=== PATIENT | male | born 1950 ===

== ENCOUNTER 2018-04-01 08:50 | Day surgery (SDC) | payer OTHER ==
[~2018-04-01] VITALS: Ht 170.2 cm; Wt 113.4 kg
[~2018-04-01 08:50] MED LIST: ANDROGEL PO; FURO100EL; FURO20 PO; HYDCHL12.5; LISI20 PO; METF500 PO; METF500C; OLME40 PO; OLME5TAB; POTBIC25; POTCHL10ER PO
== END 2018-04-01 22:40 | disposition home or self-care (01) ==
LOC: ORSCMMR 08:50 → ORD 10:00 → ORSCMMR 10:00
PROVIDERS: Internal Medicine Gastroenterology
PROC: 0DBN8ZX Excision of Sigmoid Colon, Via Natural or Artificial Opening Endoscopic, Diagnostic (ICD-10-PCS; principal; 2018-04-01 10:00)
PROC: 0DBC8ZX Excision of Ileocecal Valve, Via Natural or Artificial Opening Endoscopic, Diagnostic (ICD-10-PCS; principal; 2018-04-01 10:00)
PROC: 0DBK8ZX Excision of Ascending Colon, Via Natural or Artificial Opening Endoscopic, Diagnostic (ICD-10-PCS; principal; 2018-04-01 10:00)
PROC: 0DBL8ZX Excision of Transverse Colon, Via Natural or Artificial Opening Endoscopic, Diagnostic (ICD-10-PCS; principal; 2018-04-01 10:00)
DX: R19.7 Diarrhea, unspecified (principal); D12.2 Benign neoplasm of ascending colon; K63.89 Other specified diseases of intestine; I10 Essential (primary) hypertension; Z98.84 Bariatric surgery status; E11.9 Type 2 diabetes mellitus without complications; G47.30 Sleep apnea, unspecified; Z79.84 Long term (current) use of oral hypoglycemic drugs; Z79.899 Other long term (current) drug therapy
CPT/HCPCS: 82947; 88305; J7120

== ENCOUNTER → 2018-06-11 | Outpatient (CLI) | payer OTHER | END | disposition home or self-care (01) | LOC: PLD 11:33 → LAB SHORT 11:33 | DX: B35.1 Tinea unguium (principal) | CPT/HCPCS: 88305; 88312 ==

== ENCOUNTER → 2018-09-17 | Outpatient (CLI) | payer OTHER | END | disposition home or self-care (01) | LOC: LAB 10:45 → LAB SHORT 10:45 → LAB FUT 09-16 15:35 | DX: E11.9 Type 2 diabetes mellitus without complications (principal) | CPT/HCPCS: 82043 ==

== ENCOUNTER 2019-03-29 16:31 | Inpatient (IN) | payer OTHER ==
[~2019-03-29] VITALS: Ht 172.7 cm; Wt 110.3 kg
[~2019-03-29 16:31] MED LIST changes: -HYDCHL12.5; +Hydrochloroth12.5 MG PO; -METF500C; +METFORMIN HCL1000 M1 PO; +Zestril40 MG PO
[2019-03-29 17:03] LABS: BASOPHILS ABSOLUTE AUTO 0.03 K/mm3 (0.00-0.23); BASOPHILS PERCENT AUTO 0 % (0-2); EOSINOPHILS ABSOLUTE AUTO 0.09 K/mm3 (0.00-0.68); EOSINOPHILS PERCENT AUTO 1 % (0-6); Hematocrit 38.7 % (37.0-53.0); Hemoglobin 12.7 g/dL (13.5-17.5); IMMATURE GRAN ABSOLUTE AUTO 0.04 K/mm3 (0.00-0.10); IMMATURE GRAN PERCENT AUTO 0 % (0-1); LYMPHOCYTES ABSOLUTE AUTO 1.26 K/mm3 (0.84-5.20); LYMPHOCYTES PERCENT AUTO 10 % (21-46); MONOCYTES ABSOLUTE AUTO 0.75 K/mm3 (0.16-1.47); MONOCYTES PERCENT AUTO 6 % (4-13); Mean Corpuscular HGB 31.3 pg (26.0-34.0); Mean Corpuscular HGB Conc 32.8 g/dL (31.5-36.5); Mean Corpuscular Volume 95 fL (80-100); Mean Platelet Volume 10.7 fL (9.1-12.4); NEUTROPHILS ABSOLUTE AUTO 9.98 K/mm3 (1.96-9.15); NEUTROPHILS PERCENT AUTO 82 % (41-73); Platelet Count 241 K/mm3 (150-400); RDW Coefficient Variation 12.5 % (11.7-14.2); RDW Standard Deviation 44.1 fL (35.1-46.3); Red Blood Cell Count 4.06 M/mm3 (4.30-5.90); White Blood Cell Count 12.15 K/mm3 (4.00-11.30)
[2019-03-29 17:28] LABS: Alanine Aminotransfer (ALT/SGP 24 U/L (12-78); Albumin, Blood 3.3 g/dL (3.4-5.0); Albumin/Globulin Ratio 0.8 (0.8-1.8); Alk Phos 114 U/L (50-136); Anion Gap 6 mmol/L (6-16); Aspartate Aminotrans (AST/SGOT 20 U/L (12-37); Bilirubin, Total 0.2 mg/dL (0.1-1.0); Blood Urea Nitrogen 21 mg/dL (8-24); Bun/Creatinine Ratio 18.6 (12.0-20.0); CO2, Blood 23 mmol/L (21-32); Calcium, Blood 8.2 mg/dL (8.5-10.1); Chloride, Blood 107 mmol/L (98-108); Creatinine, Blood 1.13 mg/dL (0.60-1.20); Glomerular Filtration Rate >60 (60-); Glucose, Blood 175 mg/dL (70-99); Potassium, Blood 3.9 mmol/L (3.5-5.5); Sodium, Blood 136 mmol/L (136-145); Total Protein, Blood 7.3 g/dL (6.4-8.2); Troponin I 0.107 ng/mL (0.000-0.040)
[2019-03-29] MEDS ORDERED: THERA1 EACH PO (19:12)
[2019-03-29 21:09] LABS: International Normalized Ratio 0.98; Prothrombin Time Results 10.4 Sec (9.7-11.5)
[2019-03-30 00:53] LABS: BASOPHILS ABSOLUTE AUTO 0.02 K/mm3 (0.00-0.23); BASOPHILS PERCENT AUTO 0 % (0-2); EOSINOPHILS ABSOLUTE AUTO 0.14 K/mm3 (0.00-0.68); EOSINOPHILS PERCENT AUTO 1 % (0-6); Hematocrit 37.1 % (37.0-53.0); IMMATURE GRAN ABSOLUTE AUTO 0.03 K/mm3 (0.00-0.10); IMMATURE GRAN PERCENT AUTO 0 % (0-1); LYMPHOCYTES ABSOLUTE AUTO 1.98 K/mm3 (0.84-5.20); LYMPHOCYTES PERCENT AUTO 19 % (21-46); MONOCYTES ABSOLUTE AUTO 0.69 K/mm3 (0.16-1.47); MONOCYTES PERCENT AUTO 7 % (4-13); Mean Corpuscular HGB 31.3 pg (26.0-34.0); Mean Corpuscular HGB Conc 32.3 g/dL (31.5-36.5); Mean Corpuscular Volume 97 fL (80-100); Mean Platelet Volume 10.9 fL (9.1-12.4); NEUTROPHILS ABSOLUTE AUTO 7.34 K/mm3 (1.96-9.15); NEUTROPHILS PERCENT AUTO 72 % (41-73); Platelet Count 226 K/mm3 (150-400); RDW Coefficient Variation 12.6 % (11.7-14.2); RDW Standard Deviation 44.7 fL (35.1-46.3); Red Blood Cell Count 3.84 M/mm3 (4.30-5.90)
[2019-03-30 01:10] LABS: Anion Gap 9 mmol/L (6-16); Blood Urea Nitrogen 23 mg/dL (8-24); Bun/Creatinine Ratio 20.4 (12.0-20.0); CO2, Blood 23 mmol/L (21-32); Calcium, Blood 7.9 mg/dL (8.5-10.1); Chloride, Blood 107 mmol/L (98-108); Creatinine, Blood 1.13 mg/dL (0.60-1.20); Glomerular Filtration Rate >60 (60-); Glucose, Blood 237 mg/dL (70-99); Potassium, Blood 3.7 mmol/L (3.5-5.5); Sodium, Blood 139 mmol/L (136-145)
[2019-03-30 01:22] LABS: Cholesterol 115 mg/dL (50-200); HDL Cholesterol 29 mg/dL (>39); Low Density Lipoprotein Chol 59 mg/dL (0-110); Triglycerides 137 mg/dL (30-160); Very Low Density Lipoprot Chol 27 mg/dL (6-32)
--- NOTE | 2019-03-30 05:32 | NUR ---
SHIFT SUMMARY PT SLEEPING COMFORTABLY IN ROOM AT THIS TIME. NO ACUTE CHANGES IN STATSU SINCE ARRIVAL. PT CP WAS MANAGED IN ED PRIOR TO ARRIVAL. PT DENIES ANY CP AT T/O NIGHT. RESP EVEN UNLABORED ON RA W. SATS >92%. PT HAS HEPARIN GTT INFUSING IN PIV. CARDIO CONSULT CALLED IN TO [facility]. PT RESTING WELL AT THIS TIME. NPO FOR POSSIBLE CATH THIS AM. CALL LIGHT IN REACH.
--- NOTE | 2019-03-30 07:27 | NUR ---
ASSUMED CARE: PT RESTING IN BED, AWAKE, ALERT AND ORIENTED. HEPARIN GTT RUNNING, DENIES CHEST PAIN OR NEEDS AT THIS TIME
--- NOTE | 2019-03-30 10:05 | NUR ---
PT'S DAUGHTER CAME OUT OF ROOM AND STATED PT FELT LIKE HE WAS HAVING "HEART BURN." PYROMETER TEMPERATURE REGULATOR SAYS NO RECENT CHANGES. DSICUSSED WITH AUDIOMETRIC TECHNICIAN. ADMINISTERED DOSE OF NITRO, AWAITING EFFECTS
--- NOTE | 2019-03-30 10:28 | NUR ---
PT STATED THAT NITRO MADE HEART BURN SENSATION WORSE. CALL TO DR PIRES, ORDER FOR PEPCID. WILL ADMINISTER. FAMILY AT BEDSIDE. NO FURTHER NEEDS OR CONCERNS AT THIS TIME.
--- NOTE | 2019-03-30 13:13 | NUR ---
PT TAKEN TO ANESTHESIA TECHNICIAN BY HEART CENTER STAFF
--- NOTE | 2019-03-30 13:55 | NUR ---
Echocardiogram completed.
--- NOTE | 2019-03-30 15:18 | NUR ---
REPORT TO KOBY PHELAN RN INCLUDING PURPLE COAT TO ICU. TAPAN WILL ASSUME PT CARE
--- NOTE | 2019-03-30 16:08 | NUR ---
ASSUMED CARE / TRANSFER TO ICU: REPORT RECEIVED FROM LORI Maldonado RN IN PCU, & BURT Hankins, [facility]ART C[facility] RN. PT ARRIVED TO ROOM ICU-09 AT APPROX 1550. ON ARRIVAL, HE IS A&O, PLEASANT & COOPERATIVE. HE VERBALIZES UNDERSTANDING OF FEMORAL SITE PRECAUTIONS & IS LYING FLAT W/ SLIGHT REVERSE TRENDELENBURG POSITIONING FOR COMFORT. PT HAS SHEATH IN PLACE TO R FEMORAL ARTERY. PER DR TREVINO, aPTT SHOULD BE DRAWN Q1H UNTIL aPTT < 40 & THEN SHEATH MAY BE PULLED. ARE SURROUNDING SHEATH IS SOFT TO PALPATION W/ NO BLEEDING, BRUISING OR HEMATOMA FORMATION NOTED. PT CURRENTLY ON RA W/ O2 SATS > 92%. MONITOR SHOWS SR W/ HR 60s, BP STABLE. WILL CONTINUE TO MONITOR & UPDATE NEEDED.
--- NOTE | 2019-03-30 17:52 | NUR ---
SHIFT SUMMARY: NO ACUTE CHANGES SINCE ASSUMING CARE. PT REMAINS LYING FLAT W/ SLIGHT REVERSE TRENDELENBURG POSITIONING FOR COMFORT. THERE IS SLIGHT OOZING AROUND THE R FEMORAL ARTERIAL SHEATH, MANUAL PRESSURE HELD ABOVE SIGHT FOR APPROX 5 MINS & NEW GAUZE APPLIED TO SEE IF OOZE CONTINUES. VSS. PT ON RA W/ O2 SATS > 92%. MONITOR SHOWS SR W/ AVG HR 60s. PT HAS NO GI/ COMPLAINTS AT THIS TIME. WILL CONTINUE TO MONITOR & REPORT OFF TO ONCOMING RN.
--- NOTE | 2019-03-30 19:00 | NUR ---
RECEIVED BEDSIDE REPORT FROM TAPAN MENCHACA . PT LAYING FLAT WITH R LEG STRAIGHT. PT HAS SHEATH TO R FEMORAL. WAITING FOR THE APTT TO COME DOWN IN ORDER TO PULL THE SHEATH. PLACED CONTINUOUS OXIMETER TO R TOE SPO2 98%. PALPABLE PULSES. SHEATH SITE LOOKED OVER WITH DAY RN WHO SAID IT HAS BEEN OOZING SINCE ARRIVAL FROM SEARCH MARKETING COORDINATOR. SMALL AMT OF BLOOD OOZING AT THE SITE BUT SURROUNDING AREA IS SOFT AND NON TENDER, VSS. DENIES CP OR PRESSURE. EDUCATED PT ABOUT CALLING THE RN IF HE HAS ANY CP OR PRESSURE AFTER HAVING STENTS PLACED. AT BEDSIDE.
--- NOTE | 2019-03-30 19:30 | NUR ---
CALLED LAB TO SEE WHY APTT HAS NOT BEEN DRAWN FOR 1900. THEY ARE ON THEIR WAY. PLACED ORDERS FOR APTT FOR 1929 AND 2029 STAT DUE TO PT HAVING SHEATH STILL INTACT AND CANNOT REMOVE UNTIL APTT IS LOWER THAN 40.
--- NOTE | 2019-03-30 21:45 | NUR ---
SHEATH TO R FEMORAL WAS PULLED AT 2057 AND MANUAL PRESSURE WAS HELD FOR 20MINS. NO SIGNS OF BLEEDING, SITE IS SOFT AND NON TENDER. PT IS LAYING FLAT WITHOUT FLEXION OF NECK OR LEGS.
--- NOTE | 2019-03-30 22:00 | NUR ---
IV IS DOCUMENTED A 22G IN LH BUT IS ACTUALLY A 20G IN LH.
--- NOTE | 2019-03-30 23:57 | NUR ---
PT DOING WELL AFTER SHEATH REMOVAL. NO SIGN OF BLEEDING, GROIN SITE IS STABLE. PROVIDED COTT AND LINENS FOR TO STAY THE NIGHT. CALL LIGHT IN REACH.
[2019-03-31 03:38] LABS: BASOPHILS ABSOLUTE AUTO 0.03 K/mm3 (0.00-0.23); BASOPHILS PERCENT AUTO 0 % (0-2); EOSINOPHILS ABSOLUTE AUTO 0.17 K/mm3 (0.00-0.68); EOSINOPHILS PERCENT AUTO 2 % (0-6); Hematocrit 37.2 % (37.0-53.0); IMMATURE GRAN ABSOLUTE AUTO 0.04 K/mm3 (0.00-0.10); IMMATURE GRAN PERCENT AUTO 0 % (0-1); LYMPHOCYTES ABSOLUTE AUTO 1.53 K/mm3 (0.84-5.20); LYMPHOCYTES PERCENT AUTO 17 % (21-46); MONOCYTES ABSOLUTE AUTO 0.77 K/mm3 (0.16-1.47); MONOCYTES PERCENT AUTO 8 % (4-13); Mean Corpuscular HGB 31.1 pg (26.0-34.0); Mean Corpuscular HGB Conc 32.3 g/dL (31.5-36.5); Mean Corpuscular Volume 96 fL (80-100); Mean Platelet Volume 10.9 fL (9.1-12.4); NEUTROPHILS ABSOLUTE AUTO 6.74 K/mm3 (1.96-9.15); NEUTROPHILS PERCENT AUTO 73 % (41-73); Platelet Count 205 K/mm3 (150-400); RDW Coefficient Variation 12.7 % (11.7-14.2); RDW Standard Deviation 44.9 fL (35.1-46.3); Red Blood Cell Count 3.86 M/mm3 (4.30-5.90); White Blood Cell Count 9.28 K/mm3 (4.00-11.30)
[2019-03-31 03:57] LABS: Anion Gap 7 mmol/L (6-16); Blood Urea Nitrogen 21 mg/dL (8-24); Bun/Creatinine Ratio 17.1 (12.0-20.0); CO2, Blood 26 mmol/L (21-32); Calcium, Blood 7.9 mg/dL (8.5-10.1); Chloride, Blood 106 mmol/L (98-108); Creatinine, Blood 1.23 mg/dL (0.60-1.20); Glomerular Filtration Rate >60 (60-); Glucose, Blood 106 mg/dL (70-99); Potassium, Blood 4.2 mmol/L (3.5-5.5); Sodium, Blood 139 mmol/L (136-145)
--- NOTE | 2019-03-31 06:21 | NUR ---
PT DID WELL THROUGH THE NIGHT. NO ISSUES WITH R FEMORAL ACCESS SITE. IT IS SOFT AND NON TENDER. DENIES CP OR PRESSURE. CALL LIGHT IN REACH.
--- NOTE | 2019-03-31 07:58 | NUR ---
ASSUMED CARE / DR AGUILAR: REPORT RECEIVED FROM DOMENICO Parra RN. ASSUMED CARE OF THIS PT AT APPROX 0700. ON ASSESSMENT, THE PT IS A&O, PLEASANT & COOPERATIVE. HE HAS RESTED WELL THROUGH THE NIGHT & DENIES PAIN AT THIS TIME. PT ON RA W/ O2 SATS > 92%. MONITOR SHOWS SR W/ HR 60s, BP STABLE, SLIGHT HTN NOTED THIS AM. SCHEDULED MEDS PER EMAR. PT VOIDING W/O DIFFICULTY, HAS NO GI COMPLAINTS. PROVIDER AT BEDSIDE, STS PT OKAY TO TX TO PCU. PLAN IS FOR GENTLE IV HYDRATION FOR THE NEXT 24 HRS S/P ANGIOGRAM. PT HAS ONLY ONE KIDNEY AT THIS TIME & CREATININE SLIGHTLY ELEVATED THIS AM. IF IMPROVEMENT CONTINUES, PT MAY D/C HOME TOMORROW. WILL CONTINUE TO MONITOR & UPDATE NEEDED.
--- NOTE | 2019-03-31 08:45 | NUR ---
DR PIRES: PROVIDER AT BEDSIDE TO SEE PT. STS HE IS OKAY TO GO HOME TODAY, INFORMED HIM THAT DR AGUILAR WOULD LIKE THE PT TO STAY ONE MORE DAY FOR GENTLE IV HYDRATION. LABWORK ORDERED PT APPEARS TO HAVE SOME PNA NOTED ON AM CXR. WILL CONTINUE TO MONITOR & UPDATE NEEDED.
--- NOTE | 2019-03-31 09:54 | NUR ---
TRANSFER TO PCU: REPORT HAS BEEN CALLED TO LUCIO Lloyd RN TO ASSUME CARE IN PCU. PT IS CURRENTLY DISCUSSING CARDIAC DIET W/ JOSÉ MANUEL Dong ARCHITECTURAL COATING FINISHER. ONCE COMPLETED PT WILL BE TRANSFERRED TO PCU-15. ALL BELONGINGS & CHART TO BE TAKEN W/ PT. WILL CONTINUE TO MONITOR UNTIL TIME OF TRANSFER.
--- NOTE | 2019-03-31 13:28 | NUR ---
MANAGER FUNCTIONAL IN TO ASSESS PT, REMOVED DRESSING, NURSE CLEANED AREA AND REPLACED HE ADVISED, WILL CONTINUE TO MONITOR, NO S/SX OF INFECTION OR BLEEDING AT SITE
[2019-03-31 16:52] LABS: Anion Gap 4 mmol/L (6-16); Blood Urea Nitrogen 21 mg/dL (8-24); Bun/Creatinine Ratio 19.4 (12.0-20.0); CO2, Blood 26 mmol/L (21-32); Calcium, Blood 8.5 mg/dL (8.5-10.1); Chloride, Blood 107 mmol/L (98-108); Creatinine, Blood 1.08 mg/dL (0.60-1.20); Glomerular Filtration Rate >60 (60-); Glucose, Blood 100 mg/dL (70-99); Potassium, Blood 4.9 mmol/L (3.5-5.5); Sodium, Blood 137 mmol/L (136-145)
--- NOTE | 2019-03-31 19:17 | NUR ---
A+O, WOUND SITE CDI, CHANGED AFTER DR REMOVED ORIGINAL, SITE HAD NO S/SX OF INFECTION, DENIES PAIN TO CHEST, CALL LIGHT IN REACH, UP FOR SHOWER, WALKING IN ROOM WITH SBA
--- NOTE | 2019-03-31 23:09 | NUR ---
APPROX 1900: PATIENT RIGHT FEMORAL SITE HAS A VERY SMALL AMOUNT OF FRESH BLOOD OOZING, PATIENT STATES THAT HE HAD A SHOWER AND THE DAY NURSE HAD TO CHANGE HIS OCCLUSIVE BANDAGE. MONITORING CLOSELY, [facility] NURSE AWARE. APPROX 2100: PATIENT RIGHT FEMORAL SITE IS NOT BLEEDING ANYMORE, WILL CHECK EVERY 1-2 HOURS. THERE IS NOT SIGN OF HEMATOMA, NEW BLEEDING, SENSATION LOSS, DECREASED PULSES OR OXYGENATION. PATIENT DENIES PAIN. APPROX 2300: RIGHT FEMORAL SITE REMAINS UNCHANGED, NO NEW BLEEDING NOTED. PATIENT DENIES PAIN. ALL VSS
--- NOTE | 2019-04-01 00:55 | NUR ---
ASSUMED CARE REPORT TAKEN FROM KE MENCHACA. PT SLEEPING SOUNDLY. NO COMPLAINTS AT THIS TIME.
[2019-04-01 03:55] LABS: BASOPHILS ABSOLUTE AUTO 0.03 K/mm3 (0.00-0.23); BASOPHILS PERCENT AUTO 0 % (0-2); EOSINOPHILS ABSOLUTE AUTO 0.31 K/mm3 (0.00-0.68); EOSINOPHILS PERCENT AUTO 3 % (0-6); Hematocrit 36.9 % (37.0-53.0); Hemoglobin 12.2 g/dL (13.5-17.5); IMMATURE GRAN ABSOLUTE AUTO 0.03 K/mm3 (0.00-0.10); IMMATURE GRAN PERCENT AUTO 0 % (0-1); LYMPHOCYTES ABSOLUTE AUTO 2.19 K/mm3 (0.84-5.20); LYMPHOCYTES PERCENT AUTO 23 % (21-46); MONOCYTES ABSOLUTE AUTO 0.87 K/mm3 (0.16-1.47); MONOCYTES PERCENT AUTO 9 % (4-13); Mean Corpuscular HGB Conc 33.1 g/dL (31.5-36.5); Mean Corpuscular Volume 94 fL (80-100); Mean Platelet Volume 10.7 fL (9.1-12.4); NEUTROPHILS ABSOLUTE AUTO 5.98 K/mm3 (1.96-9.15); NEUTROPHILS PERCENT AUTO 64 % (41-73); Platelet Count 217 K/mm3 (150-400); RDW Coefficient Variation 12.6 % (11.7-14.2); RDW Standard Deviation 43.5 fL (35.1-46.3); Red Blood Cell Count 3.93 M/mm3 (4.30-5.90); White Blood Cell Count 9.41 K/mm3 (4.00-11.30)
[2019-04-01 04:14] LABS: Anion Gap 5 mmol/L (6-16); Blood Urea Nitrogen 20 mg/dL (8-24); Bun/Creatinine Ratio 17.4 (12.0-20.0); CO2, Blood 26 mmol/L (21-32); Calcium, Blood 8.3 mg/dL (8.5-10.1); Chloride, Blood 108 mmol/L (98-108); Creatinine, Blood 1.15 mg/dL (0.60-1.20); Glomerular Filtration Rate >60 (60-); Glucose, Blood 122 mg/dL (70-99); Potassium, Blood 4.6 mmol/L (3.5-5.5); Sodium, Blood 139 mmol/L (136-145)
--- NOTE | 2019-04-01 05:19 | NUR ---
SHIFT SUMMARY PT SLEEPING IN ROOM COMFORTABLY AT THIS TIME. NO CHANGES IN STATUS T/O NIGHT. PT SLEPT WELL. DENIED ANY CP, OR SOB. PT WAS IND TO RR IN ROOM. RESP EVEN UNLABORED ON RA W/ SATS >92%. NS INFUSING IN PIV TO HAVE LIGHT WASH ON PT KIDNEY AFTER STENT PLACEMENT. PT DENIES OTHER NEEDS AT THIS TIME. PT TO DC TODAY AFTER CARDIO SIGNS OFF. CALL LIGHT IN REACH.
[2019-04-01] MEDS ORDERED: ASPI81CH PO (11:45)
[2019-04-01] MEDS ORDERED: ATOR80 PO (11:46)
[2019-04-01] MEDS ORDERED: AZIT250 PO (11:47)
[2019-04-01] MEDS ORDERED: CLOP75 PO (11:48)
[2019-04-01] MEDS ORDERED: CARV6.25 PO (11:48)
[2019-04-01] MEDS ORDERED: CEFU500T30 PO (11:49)
--- NOTE | 2019-04-01 13:05 | NUR ---
DISCHARGE SUMMARY: PER DR. PIRES PATIENT IS READY FOR DISCHARGE. PATIENT HAS DENIED CHEST PAIN, DISCOMFORT OR SHORTNESS OF BREATH ALL SHIFT. PATIENT IS ALERT AND ORIENTED. PATIENT STEADY ON FEET AND DENIES LIGHTHEADEDNESS OR DIZZINESS AT ALL TIMES. BOTH FEET ARE SLIGHTLY COOL, PATIENT REPORTS THIS IS NORMAL. BILATERAL LOWER EXTREMETIES ARE THE SAME COLOR, TEMPERATURE AND HAVE STRONG PULSES. PCI PUNCTURE SITE IS COVERED WITH TEGADERM. SITE HAS SOME BRUISING. NO SIGNS SYMPTOMS OF BLEEDING, HEMATOMA OR INFECTION AT SITE. DISCHARGE RX SENT TO [facility] IN [place] PER PATIENT REQUEST. DISCHARGE EDUCATION AND INSTRUCTIONS PROVIDED TO PATIENT AND PATIENT'S . CARDIOLOGY FOLLOW-UP APPOINTMENT HAS BEEN SET FOR Mar AT 13:30. UNABLE TO MAKE FOLLOW-UP APPOINTMENT FOR [facility]. THE OFFICE REPORTS THAT THEY WILL CALL THE PATIENT. CUED PATIENT TO FOLLOW-UP IF HE DOESN'T HEAR FROM THEM. ALL QUESTIONS AND CONCERNS ADDRESSED. DENIES NEEDS AT THIS TIME. PATIENT DISCHARGED IN WHEELCHAIR WITH LASTER [facility] AND FAMILY. PATIENT STABLE AT TIME OF DISCHARGE.
== END 2019-04-01 13:02 | disposition home or self-care (01) | DRG 246 ==
LOC: ER 16:31 → PCU 16:33 → ER 21:10 → PCU 21:18 → ICUW 03-30 15:28 → PCU 03-31 10:13
PROVIDERS: Hospitalist; Internal Medicine Cardiovascular Disease; Nurse Practitioner Acute Care; Physician Assistant; ADMIT Internal Medicine
PROC: 4A023N7 Measurement of Cardiac Sampling and Pressure, Left Heart, Percutaneous Approach (ICD-10-PCS; principal; 2019-03-30)
PROC: 027034Z Dilation of Coronary Artery, One Artery with Drug-eluting Intraluminal Device, Percutaneous Approach (ICD-10-PCS; 2019-03-30)
PROC: B211YZZ Fluoroscopy of Multiple Coronary Arteries using Other Contrast (ICD-10-PCS; 2019-03-30)
DX: I21.4 Non-ST elevation (NSTEMI) myocardial infarction (principal); J18.9 Pneumonia, unspecified organism; I10 Essential (primary) hypertension; E78.5 Hyperlipidemia, unspecified; G47.33 Obstructive sleep apnea (adult) (pediatric); E11.9 Type 2 diabetes mellitus without complications; G80.9 Cerebral palsy, unspecified
CPT/HCPCS: 36415; 71046; 71260; 74160; 80048; 80053; 80061; 82947; 83880; 84145; 84484; 85025; 85347; 85610; 85730; 92920; 92978; 93005; 93010; 93306; 93454; 94640; 99152; 99153; 99285-25; C1725; C1753; C1769; C1874; C1887; C1894; C9600; G0378; J0696; J1170; J1644; J1885; J2250; J3010; J7030; J7040; Q9967

== ENCOUNTER 2019-04-05 21:28 | Emergency (ER) | payer OTHER ==
[~2019-04-05] VITALS: Ht 162.6 cm; Wt 111.1 kg
[~2019-04-05 21:28] MED LIST changes: +ASPI81CH PO; +ATOR80 PO; +AZIT250 PO; +CARV6.25 PO; +CEFU500T30 PO; +CLOP75 PO; +THERA1 EACH PO
[2019-04-05 22:00] LABS: BASOPHILS ABSOLUTE AUTO 0.03 K/mm3 (0.00-0.23); BASOPHILS PERCENT AUTO 0 % (0-2); EOSINOPHILS ABSOLUTE AUTO 0.33 K/mm3 (0.00-0.68); EOSINOPHILS PERCENT AUTO 3 % (0-6); Hematocrit 37.3 % (37.0-53.0); Hemoglobin 12.2 g/dL (13.5-17.5); IMMATURE GRAN ABSOLUTE AUTO 0.06 K/mm3 (0.00-0.10); IMMATURE GRAN PERCENT AUTO 1 % (0-1); LYMPHOCYTES ABSOLUTE AUTO 2.16 K/mm3 (0.84-5.20); LYMPHOCYTES PERCENT AUTO 21 % (21-46); MONOCYTES ABSOLUTE AUTO 0.79 K/mm3 (0.16-1.47); MONOCYTES PERCENT AUTO 8 % (4-13); Mean Corpuscular HGB 31.4 pg (26.0-34.0); Mean Corpuscular HGB Conc 32.7 g/dL (31.5-36.5); Mean Corpuscular Volume 96 fL (80-100); Mean Platelet Volume 10.9 fL (9.1-12.4); NEUTROPHILS ABSOLUTE AUTO 6.83 K/mm3 (1.96-9.15); NEUTROPHILS PERCENT AUTO 67 % (41-73); Platelet Count 258 K/mm3 (150-400); RDW Coefficient Variation 12.9 % (11.7-14.2); RDW Standard Deviation 44.9 fL (35.1-46.3); Red Blood Cell Count 3.89 M/mm3 (4.30-5.90)
[2019-04-05 22:21] LABS: Alanine Aminotransfer (ALT/SGP 37 U/L (12-78); Albumin, Blood 3.2 g/dL (3.4-5.0); Albumin/Globulin Ratio 0.7 (0.8-1.8); Alk Phos 125 U/L (50-136); Anion Gap 6 mmol/L (6-16); Aspartate Aminotrans (AST/SGOT 29 U/L (12-37); Bilirubin, Total 0.2 mg/dL (0.1-1.0); Blood Urea Nitrogen 24 mg/dL (8-24); CO2, Blood 24 mmol/L (21-32); Chloride, Blood 109 mmol/L (98-108); Creatinine, Blood 1.09 mg/dL (0.60-1.20); Globulin, Blood 4.3 g/dL (2.2-4.0); Glomerular Filtration Rate >60 (60-); Glucose, Blood 162 mg/dL (70-99); Potassium, Blood 4.8 mmol/L (3.5-5.5); Sodium, Blood 139 mmol/L (136-145); Total Protein, Blood 7.5 g/dL (6.4-8.2); Troponin I <0.015 ng/mL (0.000-0.040)
== END 2019-04-05 23:22 | disposition home or self-care (01) ==
LOC: ER 21:28
PROVIDERS: Emergency Medicine
DX: R07.9 Chest pain, unspecified (principal); I10 Essential (primary) hypertension; Z91.048 Other nonmedicinal substance allergy status; Z88.8 Allergy status to other drugs, medicaments and biological substances; Z79.899 Other long term (current) drug therapy; Z79.82 Long term (current) use of aspirin; Z79.02 Long term (current) use of antithrombotics/antiplatelets
CPT/HCPCS: 36415; 71046; 80053; 83690; 84484; 85025; 93005; 93010; 96374; 99285-25; J2270

== ENCOUNTER 2019-12-02 09:09 | Day surgery (SDC) | payer OTHER ==
[~2019-12-02] VITALS: Ht 172.7 cm; Wt 112.0 kg
[~2019-12-02 09:09] MED LIST changes: +AMLO5 PO; +Daily Multiple1 EACH PO; +Donnatal E16.2 MG/5 PO; +Isosorbide Mono30 MG PO; -METFORMIN HCL1000 M1 PO; +METFORMIN HCL500 MG PO; +NITR.4SL SL; +SPECIAL C 5001 EACH PO; -THERA1 EACH PO
[2019-12-02 09:48] LABS: BASOPHILS ABSOLUTE AUTO 0.03 K/mm3 (0.00-0.23); BASOPHILS PERCENT AUTO 0 % (0-2); EOSINOPHILS ABSOLUTE AUTO 0.22 K/mm3 (0.00-0.68); EOSINOPHILS PERCENT AUTO 3 % (0-6); Hematocrit 36.5 % (37.0-53.0); IMMATURE GRAN ABSOLUTE AUTO 0.03 K/mm3 (0.00-0.10); IMMATURE GRAN PERCENT AUTO 0 % (0-1); LYMPHOCYTES ABSOLUTE AUTO 1.77 K/mm3 (0.84-5.20); LYMPHOCYTES PERCENT AUTO 21 % (21-46); MONOCYTES ABSOLUTE AUTO 0.53 K/mm3 (0.16-1.47); MONOCYTES PERCENT AUTO 6 % (4-13); Mean Corpuscular HGB 30.9 pg (26.0-34.0); Mean Corpuscular HGB Conc 32.9 g/dL (31.5-36.5); Mean Corpuscular Volume 94 fL (80-100); NEUTROPHILS ABSOLUTE AUTO 5.91 K/mm3 (1.96-9.15); NEUTROPHILS PERCENT AUTO 70 % (41-73); Platelet Count 241 K/mm3 (150-400); RDW Coefficient Variation 12.3 % (11.7-14.2); RDW Standard Deviation 42.5 fL (35.1-46.3); Red Blood Cell Count 3.88 M/mm3 (4.30-5.90); White Blood Cell Count 8.49 K/mm3 (4.00-11.30)
[2019-12-02 09:56] LABS: Anion Gap 4 mmol/L (6-16); Blood Urea Nitrogen 18 mg/dL (8-24); Bun/Creatinine Ratio 17.8 (12.0-20.0); CO2, Blood 27 mmol/L (21-32); Calcium, Blood 8.4 mg/dL (8.5-10.1); Chloride, Blood 108 mmol/L (98-108); Creatinine, Blood 1.01 mg/dL (0.60-1.20); Glomerular Filtration Rate >60 (60-); Glucose, Blood 159 mg/dL (70-99); Potassium, Blood 4.2 mmol/L (3.5-5.5); Sodium, Blood 139 mmol/L (136-145)
[2019-12-02 09:59] LABS: Prothrombin Time Results 10.7 Sec (9.7-11.5)
--- NOTE | 2019-12-02 15:36 | NUR ---
PT ARRIVED TO PCU 4 VIA WHEELCHAIR FROM [facility], HE IS A/OX3, PLEASANT AND COOPERATIVE WITH CARE, FOLLOWS COMMANDS WELL, DENIES PAIN, STATES HE'S DOING OK, LUNGS ARE CLEAR T/O, RESP EVEN AND UNLABORED, NO COUGHT NOTED, HRR, TELE IN PLACE RUNNING SR PER MONITOR, SEE STRIP, NO EDEMA NOTED, PPP+2, CAP REFILL <3SEC, VS STABLE, AFEBRILE, IV SITE TO RFA SITE IS CLEAR AND PATENT, BTX4, ABD FLAT SOFT NONTENDER, VOIDS WITHOUT DIFF, SKIN C/W/D, MAEW, RIGHT ARM IS A BIT STIFF SECONDARY TO POLIO, AMBULATES WITHOUT DIFF, TR BANDS SITE IS CLEAR WITH ARM BOARD IN PLACE, ORIENTED TO ROOM LAYOUT, CALL SYSTEM, CALL LIGHT IN REACH. HE GOT UP TO BR AND HAD A LARGE BM, NEEDED ASSISTANCE GETTING CLEANED. HE ASKED IF HE CAN TAKE THE ARM BOARD OFF IN A FEW HRS, AFTER EXPLAINING TO HIM THAT IT WILL GO HOME WITH HIM, HE SAID ABSOLUTELY NOT, WILL NOT TAKE IT HOME, AFTER EXPLAINING WHY, HE SAID HE JUST NEEDED TO KNOW WHY.
--- NOTE | 2019-12-02 17:29 | NUR ---
ADMISSION ASSESSMENT COMPLETE. PT SITTING UP IN BED EATING DINNER AND WATCHING TV. BED IN LOWEST POSITION, RAILS UP, AND CALL LIGHT WITH IN REACH.
--- NOTE | 2019-12-02 17:31 | NUR ---
PT IS A&Ox4. TIFFANIE. LUNG SOUNDS CLEAR IN ALL [place]. PT STS ON OCCASION HE FEELS THE NEED TO TAKE A DEEP BREATH. CURRENTLY NO COMPLAINT OF SOB. PT ON TELE. RATE IS 70 AND RHYTHMN IS SINUS. DENIES CP. PULESES STRONG. 2+ EDEMA NOTED IN BILAT LOWER EXTREM. BOWEL TONES HEARD IN ALL 4 QUADRANTS. ABD FIRM. DENIES PN. LAST BM WAS AT 1630 TODAY, 12/02/19. DENIES PROBLEMS BUT NOTES HIS URINE IS DARK AND FOUL SMELLING. SKIN IS DRY AND SLIGHTLY COOL IN BILAT LOWER EXTREMETIES. PT ONLY COMPLAINT OF PAIN IS L WRIST AT THE SITE FO THE PROCEDURE. PERIPHERAL LINE IN RFA PATENT AND LOCKED. PT CURRENTLY EATING DINNER AND WATCHING TV. BED IN LOWEST POSITION, RAILS UP, AND CALL LIGHT W/IN REACH.
--- NOTE | 2019-12-02 19:25 | NUR ---
SHIFT SUMMARY PT DOING WELL. CURRENTLY RESTING IN BED WATCHUNG TV. ONLY COMPLAINT AT THIS TIME IS OCCASIONAL SOB. 2 CCs OF AIR TAKEN OUT OF TR BAND. PT TOLERATED WELL. NO BLEEDING NOTED. ARM BOARD REAPPLIED.
--- NOTE | 2019-12-03 06:23 | NUR ---
Shift Summary Pt with no acute events overnight. LW access site fully recovered on this shift, TR band removed 1 hour post recovery, tegaderm in place. Site is WNL and free from hematoma or bleed. Arm board in place. Pt requires some verbal redirections to maintain compliance with L arm restriction. VSS. tele with no events. No acute concerns. No changes from initial shift assessment. Pt is fully alert and oriented. Ambulates with 1 assist to bathroom. S/L. Will continue to monitor until day RN assumes care
--- NOTE | 2019-12-03 09:27 | NUR ---
A&Ox4. TIFFANIE. LUNG SOUNDS DIMINISHED IN BASES OTHERWISE CLEAR THROUGHOUT. DENIES SOB AT THIS TIME BUT STS HE NEEDS "TO TAKE A DEEP BREATH" ON OCCASION. PT NOW OFF TELE. LAST RHYTHMN WAS SINUS AT A RATE OF 85. DENIES CP. PERIPHERAL EDEMA IN LOWER EXTREM. BOWEL TONES HEARD IN ALL QUADRANTS. DENIES ABD PN. ABD FIRM AND DISTENDED. LAST BM 12/02/19. DENIES URINATION ISSUES. SKIN WARM AND PINK. ANGIO SITE LOOKS GOOD, CLEAN, AND WNL. SCAB ON R MCCLURE NOTED. PATENT IV IN RFA. PT CURRENTLY RESTING IN BED WATCHING TV. BED IN LOWEST POSITION, RAILS UP, AND CALL LIGHT W/IN REACH. TO BE DISCHARGED TODAY.
[2019-12-03] MEDS ORDERED: TICA90TA PO (09:59)
--- NOTE | 2019-12-03 11:25 | NUR ---
pt has been discharged to home, new script for tami [facility], he was instructed to not take metformin until thursday, he read and verbalized understanding of tr band site instructions. verbalized understanding of all instructions, has been given his stent card, iv removed intact, here to pick him up, left via wheelchair with student nurse in attendence with all belongings.
== END 2019-12-03 11:29 | disposition home or self-care (01) ==
LOC: MHTC 09:09 → PCU 14:26 → MHTC 12-03 11:29
PROVIDERS: Internal Medicine Interventional Cardiology
PROC: 4A023N7 Measurement of Cardiac Sampling and Pressure, Left Heart, Percutaneous Approach (ICD-10-PCS; principal; 2019-12-02)
PROC: B201YZZ Plain Radiography of Multiple Coronary Arteries using Other Contrast (ICD-10-PCS; principal; 2019-12-02)
PROC: B205YZZ Plain Radiography of Left Heart using Other Contrast (ICD-10-PCS; principal; 2019-12-02)
DX: I25.119 Atherosclerotic heart disease of native coronary artery with unspecified angina pectoris (principal); T82.855A Stenosis of coronary artery stent, initial encounter; Y83.1 Surgical operation with implant of artificial internal device as the cause of abnormal reaction of the patient, or of later complication, without mention of misadventure at the time of the procedure; I10 Essential (primary) hypertension; E11.9 Type 2 diabetes mellitus without complications; E78.5 Hyperlipidemia, unspecified; Z79.82 Long term (current) use of aspirin; Z79.84 Long term (current) use of oral hypoglycemic drugs; Z79.02 Long term (current) use of antithrombotics/antiplatelets; Z79.899 Other long term (current) drug therapy; Z88.8 Allergy status to other drugs, medicaments and biological substances
CPT/HCPCS: 36415; 76937; 80048; 85025; 85347; 85610; 92920; 92978; 93005; 93010; 93458; 99152; 99153; A9270-GY; C1725; C1753; C1769; C1874; C1887; C1894; C9600; J1644; J1650; J2250; J3010; J7030; Q9967

== ENCOUNTER 2020-02-10 08:32 | Day surgery (SDC) | payer OTHER ==
[~2020-02-10] VITALS: Ht 172.7 cm; Wt 106.4 kg
[~2020-02-10 08:32] MED LIST changes: +ASCO500 PO; +Nitrostat0.4 MG SL; +TICA90TA PO
--- NOTE | 2020-02-10 13:30 | NUR ---
ADMIT FROM [facility] AT 1300. RIGHT TR BAND IN PLACE. RIGHT RADIAL PULSE PALPABLE. MOVES ALL FIVE RIGHT FINGERS WITHOUT DIFFICULTY. CAP REFILL TO RIGHT HAND <3. A/A/OX3, VSS, WILL CONTINUE TO MONITOR.
--- NOTE | 2020-02-10 15:42 | NUR ---
REPORT CALLED TO SHAHANA AND GIVEN TO NIKOLAI LOPEZ.
== END 2020-02-10 15:05 | disposition short-term general hospital (02) ==
LOC: MHTC 08:32 → PCU 12:44 → MHTC 15:05
PROC: 4A023N7 Measurement of Cardiac Sampling and Pressure, Left Heart, Percutaneous Approach (ICD-10-PCS; principal; 2020-02-10)
PROC: B201YZZ Plain Radiography of Multiple Coronary Arteries using Other Contrast (ICD-10-PCS; principal; 2020-02-10)
DX: I25.110 Atherosclerotic heart disease of native coronary artery with unstable angina pectoris (principal); T82.855A Stenosis of coronary artery stent, initial encounter; E11.9 Type 2 diabetes mellitus without complications; Y83.1 Surgical operation with implant of artificial internal device as the cause of abnormal reaction of the patient, or of later complication, without mention of misadventure at the time of the procedure; I25.2 Old myocardial infarction; I10 Essential (primary) hypertension; E78.5 Hyperlipidemia, unspecified; Z79.82 Long term (current) use of aspirin; Z79.84 Long term (current) use of oral hypoglycemic drugs; Z88.8 Allergy status to other drugs, medicaments and biological substances; Z79.899 Other long term (current) drug therapy
CPT/HCPCS: 76937; 85347; 93454; 99152; 99153; C1769; C1894; C8929; J1644; J2250; J3010; J7030; J7040; Q9957; Q9967

== ENCOUNTER 2020-04-25 14:42 | Emergency (ER) | payer OTHER ==
[~2020-04-25] VITALS: Ht 172.7 cm; Wt 108.9 kg
[2020-04-25 15:27] LABS: BASOPHILS ABSOLUTE AUTO 0.03 K/mm3 (0.00-0.23); BASOPHILS PERCENT AUTO 0 % (0-2); EOSINOPHILS ABSOLUTE AUTO 0.24 K/mm3 (0.00-0.68); EOSINOPHILS PERCENT AUTO 3 % (0-6); Hematocrit 35.3 % (37.0-53.0); Hemoglobin 10.5 g/dL (13.5-17.5); IMMATURE GRAN ABSOLUTE AUTO 0.03 K/mm3 (0.00-0.10); IMMATURE GRAN PERCENT AUTO 0 % (0-1); LYMPHOCYTES ABSOLUTE AUTO 1.49 K/mm3 (0.84-5.20); LYMPHOCYTES PERCENT AUTO 18 % (21-46); MONOCYTES ABSOLUTE AUTO 0.61 K/mm3 (0.16-1.47); MONOCYTES PERCENT AUTO 8 % (4-13); Mean Corpuscular HGB 25.5 pg (26.0-34.0); Mean Corpuscular HGB Conc 29.7 g/dL (31.5-36.5); Mean Corpuscular Volume 86 fL (80-100); Mean Platelet Volume 10.6 fL (9.1-12.4); NEUTROPHILS ABSOLUTE AUTO 5.71 K/mm3 (1.96-9.15); NEUTROPHILS PERCENT AUTO 70 % (41-73); Platelet Count 354 K/mm3 (150-400); RDW Coefficient Variation 13.6 % (11.7-14.2); RDW Standard Deviation 42.4 fL (35.1-46.3); Red Blood Cell Count 4.12 M/mm3 (4.30-5.90); White Blood Cell Count 8.11 K/mm3 (4.00-11.30)
[2020-04-25 15:46] LABS: Troponin I <0.015 ng/mL (0.000-0.040)
[2020-04-25 16:03] LABS: Alanine Aminotransfer (ALT/SGP 22 U/L (12-78); Albumin, Blood 3.4 g/dL (3.4-5.0); Albumin/Globulin Ratio 0.7 (0.8-1.8); Alk Phos 140 U/L (50-136); Anion Gap 13 mmol/L (6-16); Aspartate Aminotrans (AST/SGOT 12 U/L (12-37); Bilirubin, Total 0.2 mg/dL (0.1-1.0); Blood Urea Nitrogen 20 mg/dL (8-24); Bun/Creatinine Ratio 17.7 (12.0-20.0); CO2, Blood 19 mmol/L (21-32); Calcium, Blood 8.7 mg/dL (8.5-10.1); Chloride, Blood 108 mmol/L (98-108); Creatinine, Blood 1.13 mg/dL (0.60-1.20); Globulin, Blood 4.8 g/dL (2.2-4.0); Glomerular Filtration Rate >60 (60-); Glucose, Blood 175 mg/dL (70-99); Sodium, Blood 140 mmol/L (136-145); Total Protein, Blood 8.2 g/dL (6.4-8.2)
== END 2020-04-25 23:17 | disposition home or self-care (01) ==
LOC: ER 14:42
PROVIDERS: Emergency Medicine
DX: R07.9 Chest pain, unspecified (principal); R06.00 Dyspnea, unspecified; I10 Essential (primary) hypertension; E11.9 Type 2 diabetes mellitus without complications; I25.2 Old myocardial infarction; Z88.8 Allergy status to other drugs, medicaments and biological substances; Z91.09 Other allergy status, other than to drugs and biological substances; Z79.84 Long term (current) use of oral hypoglycemic drugs; Z79.82 Long term (current) use of aspirin; Z95.5 Presence of coronary angioplasty implant and graft
CPT/HCPCS: 36415; 71045; 71260; 80053; 83735; 83880; 84484; 85025; 85379; 93005; 93010; 99285-25; Q9967

== ENCOUNTER 2020-09-20 08:08 | Day surgery (SDC) | payer OTHER, SELFPAY ==
[~2020-09-20] VITALS: Ht 172.7 cm; Wt 109.1 kg
[~2020-09-20 08:08] MED LIST changes: +ATOR40TA PO; +Aspirin EC81 MG PO; +BRILINTA90 M1 PO; +COREG12.5 M1 PO; +ISOSORBIDE MONO60 MG PO
--- NOTE | 2020-09-20 08:41 | NUR ---
09/20/20 0841 Fernanda Andersen 0830 TETRACAINE INSTILLED IN RIGHT EYE PER ORDERS. 0832 PLEDGIT PLACED IN RIGHT EYE PER ORDERS.
== END 2020-09-20 09:59 | disposition home or self-care (01) ==
LOC: ORSCSDS 08:08
PROVIDERS: Ophthalmology
PROC: 08RJ3JZ Replacement of Right Lens with Synthetic Substitute, Percutaneous Approach (ICD-10-PCS; principal; 2020-09-20 09:15)
DX: H25.11 Age-related nuclear cataract, right eye (principal); I10 Essential (primary) hypertension; I25.10 Atherosclerotic heart disease of native coronary artery without angina pectoris; I25.2 Old myocardial infarction; G47.33 Obstructive sleep apnea (adult) (pediatric); K21.9 Gastro-esophageal reflux disease without esophagitis; E11.9 Type 2 diabetes mellitus without complications; E66.01 Morbid (severe) obesity due to excess calories; Z68.36 Body mass index [BMI] 36.0-36.9, adult; Z79.4 Long term (current) use of insulin; Z79.82 Long term (current) use of aspirin; Z79.899 Other long term (current) drug therapy
CPT/HCPCS: 82947; A9270; J2001; J2250; J3010; J3301; J7040; V2632

== ENCOUNTER → 2020-10-02 | Outpatient (CLI) | payer OTHER | END | disposition home or self-care (01) | LOC: LAB SHORT 12:12 → LAB 12:12 | DX: R39.15 Urgency of urination (principal); R82.90 Unspecified abnormal findings in urine | CPT/HCPCS: 87077; 87086; 87186 ==

== ENCOUNTER → 2020-12-12 | Outpatient (CLI) | payer OTHER | LOC: LAB 16:35 → LAB SHORT 16:35 | DX: R35.0 Frequency of micturition (principal) | CPT/HCPCS: 87077; 87086; 87186 ==

== ENCOUNTER 2021-02-03 11:17 | Emergency (ER) | payer OTHER ==
[~2021-02-03] VITALS: Ht 172.7 cm; Wt 98.4 kg
[2021-02-03 12:06] LABS: BASOPHILS ABSOLUTE AUTO 0.03 K/mm3 (0.00-0.23); BASOPHILS PERCENT AUTO 0 % (0-2); EOSINOPHILS ABSOLUTE AUTO 0.27 K/mm3 (0.00-0.68); EOSINOPHILS PERCENT AUTO 3 % (0-6); Hematocrit 36.4 % (37.0-53.0); Hemoglobin 11.8 g/dL (13.5-17.5); IMMATURE GRAN ABSOLUTE AUTO 0.01 K/mm3 (0.00-0.10); IMMATURE GRAN PERCENT AUTO 0 % (0-1); LYMPHOCYTES ABSOLUTE AUTO 1.98 K/mm3 (0.84-5.20); LYMPHOCYTES PERCENT AUTO 24 % (21-46); MONOCYTES ABSOLUTE AUTO 0.67 K/mm3 (0.16-1.47); MONOCYTES PERCENT AUTO 8 % (4-13); Mean Corpuscular HGB 28.8 pg (26.0-34.0); Mean Corpuscular HGB Conc 32.4 g/dL (31.5-36.5); Mean Corpuscular Volume 89 fL (80-100); Mean Platelet Volume 10.8 fL (9.1-12.4); NEUTROPHILS ABSOLUTE AUTO 5.26 K/mm3 (1.96-9.15); NEUTROPHILS PERCENT AUTO 64 % (41-73); Platelet Count 240 K/mm3 (150-400); RDW Coefficient Variation 13.4 % (11.7-14.2); RDW Standard Deviation 43.9 fL (35.1-46.3); White Blood Cell Count 8.22 K/mm3 (4.00-11.30)
[2021-02-03 12:17] LABS: Alanine Aminotransfer (ALT/SGP 19 U/L (12-78); Albumin/Globulin Ratio 0.7 (0.8-1.8); Alk Phos 106 U/L (50-136); Anion Gap 3 mmol/L (6-16); Aspartate Aminotrans (AST/SGOT 18 U/L (12-37); Bilirubin, Total 0.2 mg/dL (0.1-1.0); Blood Urea Nitrogen 19 mg/dL (8-24); Bun/Creatinine Ratio 21.5 (12.0-20.0); CO2, Blood 26 mmol/L (21-32); Calcium, Blood 8.2 mg/dL (8.5-10.1); Chloride, Blood 106 mmol/L (98-108); Creatinine, Blood 0.88 mg/dL (0.60-1.20); Globulin, Blood 4.1 g/dL (2.2-4.0); Glomerular Filtration Rate >60 (60-); Glucose, Blood 205 mg/dL (70-99); Potassium, Blood 4.3 mmol/L (3.5-5.5); Sodium, Blood 135 mmol/L (136-145); Total Protein, Blood 7.1 g/dL (6.4-8.2); Troponin I <0.015 ng/mL (0.000-0.040)
[2021-02-03] MEDS ORDERED: Lisinopril2.5 MG PO (13:44)
[2021-02-03] MEDS ORDERED: TAMSULOSIN HCL0.4 M1 PO (13:44)
[2021-02-03] MEDS ORDERED: POTA8 PO (13:44)
[2021-02-03] MEDS ORDERED: FUROSEMIDE20 MG PO (13:45)
== END 2021-02-03 16:26 | disposition home or self-care (01) ==
LOC: ER 11:17
PROVIDERS: Emergency Medicine
DX: R07.89 Other chest pain (principal); D64.9 Anemia, unspecified; I25.10 Atherosclerotic heart disease of native coronary artery without angina pectoris; I25.2 Old myocardial infarction; I10 Essential (primary) hypertension; E11.9 Type 2 diabetes mellitus without complications; Z79.82 Long term (current) use of aspirin; Z79.84 Long term (current) use of oral hypoglycemic drugs; Z79.899 Other long term (current) drug therapy; Z95.1 Presence of aortocoronary bypass graft; Z91.048 Other nonmedicinal substance allergy status
CPT/HCPCS: 80053; 84484; 85025; 93005; 93010; 99285-25; A9270

== ENCOUNTER → 2022-08-19 | Outpatient (CLI) | payer OTHER ==
[~2022-08-19] MED LIST changes: +FUROSEMIDE20 MG PO; +Lisinopril2.5 MG PO; +POTA8 PO; +TAMSULOSIN HCL0.4 M1 PO
== END | disposition home or self-care (01) ==
LOC: LAB SHORT 12:00 → LAB 12:00
DX: R30.0 Dysuria (principal)
CPT/HCPCS: 87086

== ENCOUNTER → 2022-10-02 | Outpatient (CLI) | payer OTHER | END | disposition home or self-care (01) | LOC: LAB SHORT 08:00 → LAB 08:00 | DX: L97.509 Non-pressure chronic ulcer of other part of unspecified foot with unspecified severity (principal) | CPT/HCPCS: 87070; 87077; 87147; 87186; 87205 ==

== ENCOUNTER 2023-05-19 10:14 | Day surgery (SDC) | payer OTHER ==
[~2023-05-19] VITALS: Ht 172.7 cm; Wt 101.8 kg
[2023-05-19] MEDS ORDERED: ACTOS30 MG PO (10:43)
--- NOTE | 2023-05-19 10:45 | NUR ---
05/19/23 1045 Nakita Cartwright AT 1040 PLEDGET [id number]
[2023-05-19 11:44] VITALS: BP 165/91
--- NOTE | 2023-05-19 12:09 | NUR ---
05/19/23 1209 Lewis Nguyen IV REMOVED INTACT. SITE WNL. PT ADVISED TO MONITOR B/P AT HOME AND FOLLOW UP WITH PCP.
== END 2023-05-19 12:03 | disposition home or self-care (01) ==
LOC: ORSCSDS 10:14
PROVIDERS: Student in an Organized Health Care Education/Training Program
PROC: 08RK3JZ Replacement of Left Lens with Synthetic Substitute, Percutaneous Approach (ICD-10-PCS; principal; 2023-05-19 11:30)
DX: E11.36 Type 2 diabetes mellitus with diabetic cataract (principal); H25.12 Age-related nuclear cataract, left eye; Z96.1 Presence of intraocular lens; I10 Essential (primary) hypertension; I25.10 Atherosclerotic heart disease of native coronary artery without angina pectoris; Z79.82 Long term (current) use of aspirin; Z79.899 Other long term (current) drug therapy
CPT/HCPCS: 82947; J2250; J3010; J7040; V2632

== ENCOUNTER → 2023-07-22 | Outpatient (CLI) | payer OTHER ==
[~2023-07-22] MED LIST changes: +ACTOS30 MG PO
== END ==
LOC: LAB SHORT 12:30 → LAB 12:30
DX: L57.0 Actinic keratosis (principal)
CPT/HCPCS: 88305

== ENCOUNTER 2024-04-13 02:43 | Day surgery (SDC) | payer OTHER ==
[~2024-04-13 02:43] MED LIST changes: +Sod Ferric Gluc Complx/Sucrose 125 MG in NS 100 ML IV SCH
[2024-04-13 08:39] VITALS: BP 145/89
[2024-04-13] MEDS ORDERED: Vitamin B-12100 MCG PO (08:44)
[2024-04-13] MEDS ORDERED: INSULANPEN SC (08:45)
== END 2024-04-13 09:44 | disposition home or self-care (01) ==
LOC: ATC 02:43
DX: D50.8 Other iron deficiency anemias (principal); G80.9 Cerebral palsy, unspecified; E11.22 Type 2 diabetes mellitus with diabetic chronic kidney disease; N18.9 Chronic kidney disease, unspecified; I10 Essential (primary) hypertension; I25.10 Atherosclerotic heart disease of native coronary artery without angina pectoris; I25.2 Old myocardial infarction; G47.33 Obstructive sleep apnea (adult) (pediatric); E66.01 Morbid (severe) obesity due to excess calories; Z87.891 Personal history of nicotine dependence; Z95.5 Presence of coronary angioplasty implant and graft; Z79.84 Long term (current) use of oral hypoglycemic drugs; Z79.899 Other long term (current) drug therapy; Z98.84 Bariatric surgery status; Z90.5 Acquired absence of kidney; Z90.49 Acquired absence of other specified parts of digestive tract; Z88.8 Allergy status to other drugs, medicaments and biological substances; Z91.048 Other nonmedicinal substance allergy status
CPT/HCPCS: 96365; J2916

== ENCOUNTER 2024-04-20 00:46 | Day surgery (SDC) | payer OTHER ==
[~2024-04-20 00:46] MED LIST changes: +INSULANPEN SC; -Sod Ferric Gluc Complx/Sucrose 125 MG in NS 100 ML IV SCH; +Vitamin B-12100 MCG PO
[2024-04-20] MEDS ORDERED: Sod Ferric Gluc Complx/Sucrose 125 MG in NS 100 ML IV SCH (01:00)
[2024-04-20 10:08] VITALS: BP 167/91
== END 2024-04-20 11:21 | disposition home or self-care (01) ==
LOC: ATC 00:46
DX: D50.8 Other iron deficiency anemias (principal); I25.10 Atherosclerotic heart disease of native coronary artery without angina pectoris; I25.2 Old myocardial infarction; E11.22 Type 2 diabetes mellitus with diabetic chronic kidney disease; N18.9 Chronic kidney disease, unspecified; I10 Essential (primary) hypertension; E11.42 Type 2 diabetes mellitus with diabetic polyneuropathy; G60.8 Other hereditary and idiopathic neuropathies; G80.8 Other cerebral palsy; G47.33 Obstructive sleep apnea (adult) (pediatric); E66.01 Morbid (severe) obesity due to excess calories; Z68.33 Body mass index [BMI] 33.0-33.9, adult; Z87.891 Personal history of nicotine dependence; Z79.84 Long term (current) use of oral hypoglycemic drugs; Z79.4 Long term (current) use of insulin; Z79.899 Other long term (current) drug therapy; Z88.8 Allergy status to other drugs, medicaments and biological substances; Z91.048 Other nonmedicinal substance allergy status; Z95.5 Presence of coronary angioplasty implant and graft; Z98.84 Bariatric surgery status; Z90.49 Acquired absence of other specified parts of digestive tract
CPT/HCPCS: 96365; J2916

== ENCOUNTER 2024-04-27 04:06 | Day surgery (SDC) | payer OTHER ==
[~2024-04-27 04:06] MED LIST changes: +Sod Ferric Gluc Complx/Sucrose 125 MG in NS 100 ML IV SCH
[2024-04-27 10:11] VITALS: BP 165/87
== END 2024-04-27 11:38 | disposition home or self-care (01) ==
LOC: ATC 04:06
DX: D50.8 Other iron deficiency anemias (principal); I10 Essential (primary) hypertension; G80.9 Cerebral palsy, unspecified; I25.10 Atherosclerotic heart disease of native coronary artery without angina pectoris; I25.2 Old myocardial infarction; E11.42 Type 2 diabetes mellitus with diabetic polyneuropathy; E11.22 Type 2 diabetes mellitus with diabetic chronic kidney disease; N18.2 Chronic kidney disease, stage 2 (mild); G47.33 Obstructive sleep apnea (adult) (pediatric); E66.01 Morbid (severe) obesity due to excess calories; Z68.33 Body mass index [BMI] 33.0-33.9, adult; Z87.891 Personal history of nicotine dependence; Z79.84 Long term (current) use of oral hypoglycemic drugs; Z79.899 Other long term (current) drug therapy; Z95.5 Presence of coronary angioplasty implant and graft; Z98.84 Bariatric surgery status; Z88.8 Allergy status to other drugs, medicaments and biological substances; Z91.048 Other nonmedicinal substance allergy status; Z90.49 Acquired absence of other specified parts of digestive tract
CPT/HCPCS: 96365; J2916

== ENCOUNTER 2024-05-04 03:54 | Day surgery (SDC) | payer OTHER ==
[2024-05-04 10:12] VITALS: BP 153/87
== END 2024-05-04 11:27 | disposition home or self-care (01) ==
LOC: ATC 03:54
DX: D50.8 Other iron deficiency anemias (principal); E11.22 Type 2 diabetes mellitus with diabetic chronic kidney disease; N18.2 Chronic kidney disease, stage 2 (mild); G80.9 Cerebral palsy, unspecified; I25.10 Atherosclerotic heart disease of native coronary artery without angina pectoris; I25.2 Old myocardial infarction; I10 Essential (primary) hypertension; G47.33 Obstructive sleep apnea (adult) (pediatric); E66.01 Morbid (severe) obesity due to excess calories; Z68.33 Body mass index [BMI] 33.0-33.9, adult; Z79.84 Long term (current) use of oral hypoglycemic drugs; Z79.899 Other long term (current) drug therapy; Z91.048 Other nonmedicinal substance allergy status; Z88.8 Allergy status to other drugs, medicaments and biological substances; Z98.84 Bariatric surgery status; Z87.891 Personal history of nicotine dependence; Z90.49 Acquired absence of other specified parts of digestive tract
CPT/HCPCS: 96365; J2916

== ENCOUNTER → 2024-05-18 | Outpatient (CLI) | payer OTHER ==
[~2024-05-18] MED LIST changes: -Sod Ferric Gluc Complx/Sucrose 125 MG in NS 100 ML IV SCH
[2024-05-18 21:05] LABS: Adenovirus F 40/41 Not Detected (NOT DETECT); Astrovirus Not Detected (NOT DETECT); Campylobacter Sp Not Detected (NOT DETECT); Cryptosporidium Not Detected (NOT DETECT); Cyclospora Cayetanensis Not Detected (NOT DETECT); E. Coli O157 Not Detected (NOT DETECT); Entamoeba Histolytica Not Detected (NOT DETECT); Enteroaggregative E. coli-EAEC Not Detected (NOT DETECT); Enteropathogenic E. coli-EPEC Not Detected (NOT DETECT); Enterotoxigenic E. coli-ETEC Not Detected (NOT DETECT); Giardia Lamblia Not Detected (NOT DETECT); Norovirus GI/GII Not Detected (NOT DETECT); Plesiomonas Shigelloides Not Detected (NOT DETECT); Rotavirus A Not Detected (NOT DETECT); Salmonella Sp Not Detected (NOT DETECT); Sapovirus Not Detected (NOT DETECT); Shiga Toxin-prod E. coli-STEC Not Detected (NOT DETECT); Shigella/Enteroin E. coli-EIEC Not Detected (NOT DETECT); Vibrio Cholerae Not Detected (NOT DETECT); Vibrio Sp Not Detected (NOT DETECT); Yersinia Enterocolitica Not Detected (NOT DETECT)
[2024-05-20 21:12] LABS: CALPROTECTIN,FECAL 103 ug/g (<=49)
[2024-05-25 20:02] LABS: OVA AND PARASITE,FECAL INTERP Negative (Negative)
== END ==
LOC: LAB SHORT 11:20 → LAB 11:20
PROVIDERS: Student in an Organized Health Care Education/Training Program
DX: K52.9 Noninfective gastroenteritis and colitis, unspecified (principal)
CPT/HCPCS: 83993; 87177; 87209; 87507

== ENCOUNTER 2025-02-14 12:16 | Emergency (ER) | payer OTHER ==
[~2025-02-14] VITALS: Ht 172.7 cm; Wt 103.9 kg
[2025-02-14 13:26] LABS: BASOPHILS ABSOLUTE AUTO 0.02 K/mm3 (0.00-0.23); BASOPHILS PERCENT AUTO 0 % (0-2); EOSINOPHILS ABSOLUTE AUTO 0.05 K/mm3 (0.00-0.68); EOSINOPHILS PERCENT AUTO 1 % (0-6); Hematocrit 40.4 % (37.0-53.0); Hemoglobin 13.3 g/dL (13.5-17.5); IMMATURE GRAN ABSOLUTE AUTO 0.02 K/mm3 (0.00-0.10); IMMATURE GRAN PERCENT AUTO 0 % (0-1); LYMPHOCYTES ABSOLUTE AUTO 1.02 K/mm3 (0.84-5.20); LYMPHOCYTES PERCENT AUTO 14 % (21-46); MONOCYTES ABSOLUTE AUTO 1.05 K/mm3 (0.16-1.47); MONOCYTES PERCENT AUTO 14 % (4-13); Mean Corpuscular HGB Conc 32.9 g/dL (31.5-36.5); Mean Corpuscular Volume 88 fL (80-100); NEUTROPHILS ABSOLUTE AUTO 5.16 K/mm3 (1.96-9.15); NEUTROPHILS PERCENT AUTO 71 % (41-73); NRBC ABSOLUTE 0.00 K/mm3 (0.00-0.02); NRBC Auto 0.0 /100 WBC (0.0-0.2); Platelet Count 227 K/mm3 (150-400); RDW Coefficient Variation 13.2 % (11.7-14.2); RDW Standard Deviation 42.7 fL (35.1-46.3)
[2025-02-14 13:50] LABS: Alanine Aminotransfer (ALT/SGP 18.0 U/L (12-78); Albumin, Blood 3.4 g/dL (3.4-5.0); Albumin/Globulin Ratio 0.7 (0.8-1.8); Anion Gap 3.0 mmol/L (3-11); Aspartate Aminotrans (AST/SGOT 19.0 U/L (12-37); Bilirubin, Total 0.3 mg/dL (0.1-1.0); Blood Urea Nitrogen 24.0 mg/dL (8-24); CO2, Blood 28.0 mmol/L (21-32); Calcium, Blood 8.4 mg/dL (8.5-10.1); Chloride, Blood 105.0 mmol/L (98-108); Creatinine, Blood 1.27 mg/dL (0.60-1.20); Globulin, Blood 4.6 g/dL (2.2-4.0); Glucose, Blood 112.0 mg/dL (70-99); Potassium, Blood 3.8 mmol/L (3.5-5.5); Sodium, Blood 132.0 mmol/L (136-145); Total Protein, Blood 8.0 g/dL (6.4-8.2)
[2025-02-14 16:43] LABS: Influenza A, PCR NEGATIVE (NEGATIVE); Influenza B, PCR NEGATIVE (NEGATIVE); Resp Syncytial Virus, PCR NEGATIVE (NEGATIVE)
[2025-02-14 17:02] LABS: Source, Urine Clean Catch
[2025-02-14 17:07] LABS: Bilirubin, Urine Neg (Neg); Color, Urine Yellow (P-Yellow); Glucose Qualitative, Urine Neg (Neg); Ketones, Urine Neg (Neg); Leukocyte Esterase, Urine Neg (Neg); Protein, Urine 4+ (Neg); Specific Gravity, Urine 1.020 (1.003-1.022); Urobilinogen, Urine 1+ (Normal)
[2025-02-14 17:11] LABS: SARS-Cov-2 (COVID-19) PCR, MMC POSITIVE (NEGATIVE)
[2025-02-14 17:24] LABS: White Blood Cells, Urine 0-2 /hpf (0-5)
[2025-02-14 17:45] VITALS: BP 172/97
== END 2025-02-14 18:26 | disposition home or self-care (01) ==
LOC: ER 12:16
PROVIDERS: Emergency Medicine; Student in an Organized Health Care Education/Training Program
DX: U07.1 COVID-19 (principal); I10 Essential (primary) hypertension; I25.2 Old myocardial infarction; E11.9 Type 2 diabetes mellitus without complications; Z91.048 Other nonmedicinal substance allergy status; Z63.8 Other specified problems related to primary support group; Z88.8 Allergy status to other drugs, medicaments and biological substances; Z79.4 Long term (current) use of insulin; Z79.82 Long term (current) use of aspirin; Z79.84 Long term (current) use of oral hypoglycemic drugs; Z79.899 Other long term (current) drug therapy
CPT/HCPCS: 70450; 71046; 72125; 80053; 81001; 85025; 87086; 87637; 93005; 93010; 99285-25; L0160

== ENCOUNTER → 2025-03-13 | Outpatient (CLI) | payer OTHER ==
[2025-03-13 21:03] LABS: Creatinine, Urine Random 39.0 mg/dL (27.00-270.00); Microalb/Creat Ratio UR, Rand 1723.08 mg/g (0.000-30.000); Microalbumin, Random Urine 672.0 mg/L (0.000-20.000)
== END | disposition home or self-care (01) ==
LOC: LAB SHORT 10:30 → LAB 10:30
PROVIDERS: Student in an Organized Health Care Education/Training Program
DX: E11.42 Type 2 diabetes mellitus with diabetic polyneuropathy (principal); E11.65 Type 2 diabetes mellitus with hyperglycemia; E11.69 Type 2 diabetes mellitus with other specified complication; Z79.4 Long term (current) use of insulin
CPT/HCPCS: 82043; 82570